=== PATIENT | male | born 1955 | race Caucasian/White ===

== ENCOUNTER 2018-06-17 17:40 | Emergency (ER) | payer BC ==
[~2018-06-17] VITALS: Ht 170.2 cm; Wt 87.8 kg
[~2018-06-17 17:40] MED LIST: ATORVASTATIN CA40 MG PO; CIPRO500 MG PO; CO Q-10100 MG PO; COLACE100 MG PO; COQ PO; ESOMEPRAZOLE MA40 MG PO; FISH OIL 1,4001 EACH PO; METOCLOPRAMIDE10 MG PO; PERCOCET 5/31 TABLET PO; ST. JOSEPH ASPI81 MG PO
[2018-06-17 17:57] VITALS: BP 153/86
== END 2018-06-17 18:57 | disposition left against medical advice (07) ==
LOC: EME 17:40
DX: T63.441A Toxic effect of venom of bees, accidental (unintentional), initial encounter (principal); Z91.030 Bee allergy status; Z53.21 Procedure and treatment not carried out due to patient leaving prior to being seen by health care provider